=== PATIENT | male | born 1960 | race Caucasian/White ===

== ENCOUNTER 2023-07-19 10:32 | Outpatient (CLI) | payer BC, SELFPAY ==
--- NOTE | ~2023-07-19 | XR_ITS ---
Left wrist Technique: PA, oblique, lateral, and ulnar deviation views were obtained. Clinical History: Pain Findings: No acute fracture or dislocation is seen. Osseous alignment is anatomic. Joint spaces are p reserved. Soft tissues are unremarkable. Impression: Unremarkable left wrist radiographs. Reviewed, dictated and finalized at location . Y WORKER Impression: Unremarkable left wrist radiographs.
--- NOTE | ~2023-07-19 | XR_ITS ---
Left Hand Technique: PA, oblique, and lateral views were obtained. Clinical History: Pain Findings: No acute fracture or dislocation is seen. Osseous alignment is anatomic. There is mild dege nerative change of the second and third MCP joints, and interphalangeal joint of the thumb. Soft tiss ues are unremarkable. Impression: Degenerative changes, as above. Reviewed, dictated and finalized at location . Impression: Degenerative changes, as above.
== END 2023-07-19 10:33 ==
DX: T14.90XA Injury, unspecified, initial encounter (principal)
CPT/HCPCS: 73110; 73130

== ENCOUNTER 2023-10-08 06:48 | Outpatient (CLI) | payer BC, SELFPAY ==
--- NOTE | ~2023-10-08 | XR_ITS ---
AP view of the pelvis Clinical history: Pain Findings: No acute fracture or dislocation is seen. Osseous alignment is anatomic. There is mild dege nerative change of both hip joints. Soft tissues are unremarkable. 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 Reviewed, dictated and finalized at location M. 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
--- NOTE | ~2023-10-08 | XR_ITS ---
Left Knee Technique: AP and lateral views were obtained. Clinical History: Pain Findings: No fracture or dislocation is seen. Osseous alignment is anatomic. Joint spaces are preserv ed without degenerative or erosive change. Soft tissues are unremarkable. No joint effusion is seen. Impression: Unremarkable left knee radiographs. Reviewed, dictated and finalized at location . Impression: Unremarkable left knee radiographs.
== END 2023-10-08 06:49 ==
LOC: MICIMG 06:50
DX: M25.562 Pain in left knee (principal); M25.559 Pain in unspecified hip
CPT/HCPCS: 72170; 73560